=== PATIENT | male | born 1960 | race Caucasian/White ===

== ENCOUNTER 2017-03-03 09:49 | Emergency (ER) | payer OTHER ==
[~2017-03-03] VITALS: Ht 177.8 cm; Wt 94.3 kg
[~2017-03-03 09:49] MED LIST: ACID REDUCER 1150 MG PO; ALEVE220 M2 PO; ASPIRIN325 MG PO; FLUTICASONE PRO16 GM BOTH NARES; NASONEX17 GM BOTH NARES; PRAVASTATIN SOD40 MG PO; PROMETHAZINE HC25 M1 PO; RIZATRIPTAN10 MG PO; TAMSULOSIN HCL0.4 MG PO
[2017-03-03] MEDS ORDERED: REGLAN10 MG PO (13:02)
[2017-03-03] MEDS ORDERED: MUCUS ER600 MG PO (13:02)
[2017-03-03] MEDS ORDERED: FLEXERIL10 MG PO (13:02)
[2017-03-03 13:13] VITALS: BP 143/75
== END 2017-03-03 13:19 | disposition home or self-care (01) ==
LOC: EME 09:49
DX: R51 Headache (principal); J34.89 Other specified disorders of nose and nasal sinuses; R11.0 Nausea; Z86.69 Personal history of other diseases of the nervous system and sense organs; K21.9 Gastro-esophageal reflux disease without esophagitis; Z87.891 Personal history of nicotine dependence
CPT/HCPCS: 70450; 99281; 99283; J1885